=== PATIENT | female | born 1955 | race Caucasian/White ===

== ENCOUNTER 2017-05-09 12:43 | Emergency (ER) | payer MEDICARE ==
[~2017-05-09] VITALS: Ht 165.1 cm; Wt 70.5 kg
[2017-05-09 12:45] VITALS: BP 138/73; PULSE 115; RESP 14; TEMP 97.9; O2SAT 100
--- NOTE | 2017-05-09 13:20 | PD ---
HPI Chief Complaint: Complaint Time Seen by Provider: 13:07 Travel History International Travel<30 days: No Contact w/Intl Traveler<30days: No Traveled to known affect area: No History of Present Illness HPI 62-year-old female presents to the emergency room for evaluation of dysuria, urgency, and frequency for the past 5-6 days. Patient reports bladder discomfort worse when she urinates. She denies any hematuria, nausea, vomiting , fever, chills, or flank pain. Denies history of UTI. She is not on any daily medications. Denies chronic medical conditions. Denies any vaginal symptoms. PFSH Social History Tobacco Use: No Allergies-Medications (Allergen,Severity, Reaction): Coded Allergies: No Known Allergies (Unverified , 05/09/17) Reported Meds & Prescriptions Reported Meds & Active Scripts Active Pyridium (Phenazopyridine HCl) 100 Mg Tab 100 Mg PO Q8H PRN Keflex (Cephalexin) 500 Mg Cap 500 Mg PO Q12H 7 Days Review of Systems Except as stated in HPI: all other systems reviewed are Neg Physical Exam Narrative GENERAL: Well-nourished, well-developed female in no acute distress. Afebrile. Ambulatory. SKIN: Focused skin assessment warm/dry. HEAD: Normocephalic. EYES: No scleral icterus. No injection or drainage. NECK: Supple, trachea midline. No JVD or lymphadenopathy. CARDIOVASCULAR: Slightly tachycardic. Regular rhythm without murmurs, gallops, or rubs. RESPIRATORY: Breath sounds equal bilaterally. No accessory muscle use. BACK: Nontender without obvious deformity. No CVA tenderness. Data Data Last Documented VS Vital Signs Date Time Temp Pulse Resp B/P (MAP) Pulse Ox O2 Delivery O2 Flow Rate FiO2 05/09/17 12:45 97.9 115 14 138/73 (94) 100 Orders Orders Urinalysis - C+S If Indicated (05/09/17 13:13) Urine Culture (05/09/17 13:15) Ed Discharge Order (05/09/17 13:44) Labs Laboratory Tests Test 05/09/17 13:15 Urine Color YELLOW Urine Turbidity CLOUDY Urine pH 5.5 Urine Specific [place] 1.014 Urine Protein 30 mg/dL Urine Glucose (UA) NEG mg/dL Urine Ketones NEG mg/dL Urine Occult Blood MOD Urine Nitrite POS Urine Bilirubin NEG Urine Urobilinogen LESS THAN 2.0 MG/DL Urine Leukocyte Esterase LARGE Urine RBC 15 /hpf Urine WBC /hpf Urine WBC Clumps MANY Urine Squamous Epithelial Cells 1 /hpf Urine Bacteria MANY /hpf Urine Mucus FEW /lpf Microscopic Urinalysis Comment CULTURE INDICATED MDM Medical Decision Making Medical Screen Exam Complete: Yes Emergency Medical Condition: Yes Medical Record Reviewed: Yes Differential Diagnosis UTI, pyelonephritis, chemical dysuria Narrative Course 62-year-old otherwise healthy female presents to the emergency room for evaluation of dysuria, urgency, and frequency for the past 5-6 days. Patient denies systemic signs of infection, vaginal symptoms, or flank pain. Physical exam is reassuring. Patient resting comfortably and in no acute distress. No CVA tenderness. She is slightly tachycardic but patient states she has been tachycardic her whole life and this is normal for her. UA shows evidence of acute UTI. Patient discharged with prescription for Keflex and told to follow- up with the PCP or return for worsening symptoms. She understands and agrees to plan. Diagnosis Primary Impression: Urinary tract infection Qualified Codes: N30.01 - Acute cystitis with hematuria Referrals: Primary Care Physician Additional Instructions: Rest and drink plenty of fluids. Keflex as directed, until gone. Pyridium as directed. This medication will turn your urine orange. Follow-up with a primary care physician. Return to the emergency room for worsening symptoms. Scripts Phenazopyridine (Pyridium) 100 Mg Tab 100 MG PO Q8H Y for DYSURIA, #6 TAB 0 Refills Prov: Sammy Tom MD 05/09/17 Cephalexin (Keflex) 500 Mg Cap 500 MG PO Q12H for Infection for 7 Days, #14 CAP 0 Refills Prov: Sammy Tom MD 05/09/17 Disposition: DISCHARGE HOME Condition: Stable Kristina Alcantar May 09, 2017 13:20
[2017-05-09 13:39] LABS: BACTERIA, URINE MANY /hpf; BILIRUBIN, URINE NEG (NEG); BLOOD, URINE MOD (NEG); GLUCOSE,URINE NEG (NEG); KETONE, URINE NEG (NEG); MUCUS URINE FEW /lpf (OCC); NITRITE,URINE POS (NEG); PH, URINE 5.5 (5.0-8.5); SQUAMOUS EPITHELIAL CELL URINE 1 /hpf (0-5); URINE COLOR YELLOW (YELLW/STRAW); URINE LEUKOCYTE ESTERASE LARGE (NEG); WHITE BLOOD CELL CLUMPS MANY
[2017-05-09] MEDS ORDERED: CEPH-460 PO (13:44)
[2017-05-09] MEDS ORDERED: PHEN0.4T PO (13:46)
== END 2017-05-09 14:33 | disposition home or self-care (01) ==
LOC: NEPK 12:43
DX: N30.01 Acute cystitis with hematuria (principal); B96.20 Unspecified Escherichia coli [E. coli] as the cause of diseases classified elsewhere
CPT/HCPCS: 81001; 87077; 87086; 87186; 99283